=== PATIENT | female | born 1940 | race Caucasian/White ===

== ENCOUNTER 2022-02-10 11:03 | Outpatient (CLI) | payer OTHER ==
[~2022-02-10 11:03] MED LIST: ZOCOR5 MG
== END 2022-02-10 11:04 | disposition home or self-care (01) ==
LOC: NUCLEAR 11:03
PROVIDERS: ATTEND Internal Medicine
DX: I73.9 Peripheral vascular disease, unspecified (principal); I87.2 Venous insufficiency (chronic) (peripheral)

== ENCOUNTER 2022-02-11 10:46 | Outpatient (CLI) | payer OTHER | END 2022-02-11 10:47 | disposition home or self-care (01) | LOC: NUCLEAR 10:46 | PROVIDERS: ATTEND Internal Medicine | DX: I87.2 Venous insufficiency (chronic) (peripheral) (principal); I73.9 Peripheral vascular disease, unspecified ==

== ENCOUNTER 2024-09-25 12:03 | Outpatient (CLI) | payer OTHER | END 2024-09-25 12:10 | disposition home or self-care (01) | LOC: TOM 12:03 | PROVIDERS: ATTEND Internal Medicine | DX: G45.9 Transient cerebral ischemic attack, unspecified (principal); R41.0 Disorientation, unspecified ==